=== PATIENT | male | born 1955 | race Caucasian/White ===

== ENCOUNTER 2021-12-26 12:16 | Inpatient (IN) | payer OTHER, SELFPAY ==
[~2021-12-26] VITALS: Ht 175.3 cm; Wt 84.8 kg
[2021-12-26 12:25] VITALS: BP 147/64
--- NOTE | 2021-12-26 12:33 | NUR ---
66 Y/O MALE BIBA FROM [facility] C/O ABD PAIN X2 DAYS. PER EMS EPIGASTRIC PAIN 9/10 SHARP PAIN, NON RADIATING. MEDHX: AFIB, DM, ANEMIC, HTN, COLOSTOMY, NEPHROSTOMY TUBE, HERNIA NKA
--- NOTE | 2021-12-26 12:44 | NUR ---
DR GROSS AT BEDSIDE EXAMINING PT
[2021-12-26] MEDS ORDERED: NACL 0.9% 500 ML IV ONE (12:50)
[2021-12-26] MEDS ORDERED: MORPHINE SULFATE 2 MG/ML SYR IVP ONE ×2 (12:50→13:50)
[2021-12-26] MEDS ORDERED: ONDANSETRON 4 MG/2 ML VIAL IVP ONE (12:50)
--- NOTE | 2021-12-26 12:59 | NUR ---
PT TAKEN TO CT SCAN VIA LIZZETH
[2021-12-26 13:47] LABS: BASOPHILS # (AUTO) 0.2 K/uL (0.00-0.22); BASOPHILS % (AUTO) 2.5 % (0.0-2.0); EOSINOPHILS # (AUTO) 0.1 K/uL (0-0.4); EOSINOPHILS % (AUTO) 0.6 % (0.0-4.0); HEMATOCRIT 35.7 % (36-52); HEMOGLOBIN 11.6 g/dL (12.0-18.0); LYMPHOCYTES # (AUTO) 1.6 K/uL (2.0-11.5); MEAN CORPUSCULAR HEMOGLOBIN 30 pg (27-31); MEAN CORPUSCULAR HGB CONC 32 g/dL (33-37); MEAN CORPUSCULAR VOLUME 93.9 fL (80-94); MONOCYTES # (AUTO) 0.6 K/uL (0.8-1.0); MONOCYTES % (AUTO) 7.1 % (1.7-9.3); NEUTROPHILS # (AUTO) 6.2 K/uL (1.8-7.7); NEUTROPHILS % (AUTO) 71.8 % (42.2-75.2); PLATELET COUNT (AUTO) 228 K/uL (140-450); RED CELL DISTRIBUTION WIDTH 19.9 % (11.6-13.7); WHITE BLOOD COUNT (AUTO) 8.7 K/uL (4.8-10.8)
[2021-12-26] MEDS ORDERED: LORazepam 2 MG/ML VIAL IVP ONE (13:50)
[2021-12-26] MEDS ORDERED: ONDANSETRON 4 MG/2 ML VIAL ONE (14:03)
[2021-12-26 14:19] LABS: ALBUMIN 1.9 g/dL (3.4-5.0); ANION GAP 11.6 (8-16); CARBON DIOXIDE 25.1 mmol/L (21-32); CREATININE 1.1 mg/dL (0.6-1.3); POTASSIUM 3.7 mmol/L (3.5-5.1); TOTAL BILIRUBIN 1.5 mg/dL (0.0-1.0)
--- NOTE | 2021-12-26 14:30 | NUR ---
Patient appears to be resting comfortably in bed. Vital Signs within normal limits. Respirations even and unlabored.
[2021-12-26 15:06] LABS: PROTHROMBIN TIME 10.1 secs (10.8-13.4)
[2021-12-26 15:48] LABS: BILIRUBIN,URINE NEGATIVE (NEGATIVE); BLOOD, URINE 3+ (NEGATIVE); COLOR,URINE YELLOW (YELLOW); LEUKOCYTE ESTERASE ,URINE 1+ (NEGATIVE); NITRITE, URINE NEGATIVE (NEGATIVE); PH,URINE 5.5 (5.0-9.0); UGLUCOSE NEGATIVE (NEGATIVE)
[2021-12-26] MEDS ORDERED: TUBE5SOL28 ID (16:02)
[2021-12-26] MEDS ORDERED: SLIDE SUBQ (16:02)
[2021-12-26] MEDS ORDERED: TAMS0.4C96 PO (16:02)
[2021-12-26] MEDS ORDERED: FERR325E14 PO (16:02)
[2021-12-26] MEDS ORDERED: POTA8TAB19 PO (16:02)
[2021-12-26] MEDS ORDERED: QUET25TA PO (16:02)
[2021-12-26] MEDS ORDERED: ACET-2619 PO (16:02)
[2021-12-26] MEDS ORDERED: METO50TE2 PO (16:02)
[2021-12-26] MEDS ORDERED: CLON0.5T PO (16:02)
[2021-12-26] MEDS ORDERED: FURO-570 PO (16:02)
[2021-12-26 16:05] LABS: APPEARANCE,URINE HAZY (CLEAR)
[2021-12-26 16:33] LABS: RBC,URINE 20-50 /HPF (0-5); YEAST,URINE Many /HPF (None Seen)
--- NOTE | 2021-12-26 16:58 | NUR ---
Patient on room air, resting comfortably in bed. Vital Signs within normal limits. Respirations even and unlabored. Chest rise is symmetrical. Will continue to monitor.
--- NOTE | 2021-12-26 19:15 | NUR ---
Pt report given to KAMILA HDZ. Transfer of care at this time.
--- NOTE | 2021-12-26 19:47 | NUR ---
PER BROTHER, HAS KIDNEY STONES
--- NOTE | 2021-12-26 19:51 | NUR ---
report given to Ervin HDZ from tele unit.
--- NOTE | 2021-12-26 20:35 | NUR ---
PT ARRIVED ON UNIT - GENERALIZED WEAKNESS. BILAT. LOWER EXT. EDEMA - PITTING 1-2+. LEG PLACED ON PILLOW SO HEELS FLOAT. NO SKIN BREAKS. VITILIGO SPOTS OVER BODY. DIAPERS SHOWED MULTIPLE VOIDS AND BM (SMALL). INCONT. CARE PROVIDED. PT IS TOTAL CARE. PT BARELY ABLE TO SPEAK.
[2021-12-26] MEDS: MORPHINE SULFATE 2 MG/ML SYR IVP PRN (22:57)
[2021-12-27] MEDS ORDERED: clonazePAM 0.5 MG TAB PO SCH (01:15)
[2021-12-27] MEDS ORDERED: POTASSIUM CHLORIDE 10 MEQ TABER PO PRN (01:15)
[2021-12-27] MEDS ORDERED: DEXTROSE 50% 50 ML SYR IVP PRN (01:15)
[2021-12-27] MEDS ORDERED: ONDANSETRON 4 MG/2 ML VIAL IM/IVP PRN (01:20)
[2021-12-27] MEDS: NACL 0.9% 1,000 ML IV SCH ×2 (01:20→17:31)
[2021-12-27] MEDS ORDERED: ZOLPIDEM 5 MG TAB PO PRN (01:20)
[2021-12-27] MEDS ORDERED: FLUCONAZOLE 200 MG/NS PREMIX 100 ML IV SCH (01:20)
[2021-12-27] MEDS ORDERED: DOCUSATE SODIUM 100 MG GELCAP PO PRN (01:20)
--- NOTE | 2021-12-27 01:39 | NUR ---
PT YELLING SPORADIC BUT DENIES PAIN. PT MEDICATED EARLIER W MORPHINE 2MG - PT REFUSES ANY MORE MEDICATION. PT DENIES KNOWING WHY HE IS YELLING. HEART RATE 130-140. DR. MCCORMICK iMESSAGED FOR FURTHER DIRECTION.
[2021-12-27 02:18] LABS: BASOPHILS # (AUTO) 0.1 K/uL (0.00-0.22); BASOPHILS % (AUTO) 0.6 % (0.0-2.0); EOSINOPHILS % (AUTO) 0.2 % (0.0-4.0); HEMATOCRIT 34.9 % (36-52); HEMOGLOBIN 11.1 g/dL (12.0-18.0); LYMPHOCYTES # (AUTO) 2.2 K/uL (2.0-11.5); LYMPHOCYTES % (AUTO) 25.2 % (20.5-51.1); MEAN CORPUSCULAR HEMOGLOBIN 30 pg (27-31); MEAN CORPUSCULAR HGB CONC 32 g/dL (33-37); MEAN CORPUSCULAR VOLUME 94.4 fL (80-94); MONOCYTES # (AUTO) 0.6 K/uL (0.8-1.0); MONOCYTES % (AUTO) 7.1 % (1.7-9.3); NEUTROPHILS % (AUTO) 66.9 % (42.2-75.2); PLATELET COUNT (AUTO) 227 K/uL (140-450); RED CELL DISTRIBUTION WIDTH 19.6 % (11.6-13.7); WHITE BLOOD COUNT (AUTO) 8.9 K/uL (4.8-10.8)
[2021-12-27 02:31] LABS: ANION GAP 12.4 (8-16); CARBON DIOXIDE 25.6 mmol/L (21-32); CREATININE 1.1 mg/dL (0.6-1.3)
--- NOTE | 2021-12-27 02:31 | NUR ---
iMESSAGE SENT TO DR ALONZO. AWAITING RESPONSE.
[2021-12-27 02:37] LABS: PROTHROMBIN TIME 10.4 secs (10.8-13.4)
[2021-12-27] MEDS ORDERED: cefTRIAXone 1,000 MG VIAL ONE (02:41)
[2021-12-27] MEDS: LORazepam 2 MG/ML VIAL IM/IVP PRN ×4 (02:46→21:07)
[2021-12-27] MEDS: FLUCONAZOLE 200 MG/NS PREMIX 100 ML IV SCH (02:46)
[2021-12-27 02:57] LABS: CHOL/HDL RATIO 4.1 (1-4.5); THYROID STIMULATING HORMONE 7.61 uIU/mL (0.34-3.74)
--- NOTE | 2021-12-27 02:58 | NUR ---
PT GIVEN ATIVAN SUCCESSFULLY. PT REFUSING ABXs, REFUSING INCONTINENCE CARE. WILL RE-APPROACH WHEN ATIVAN PEAKS.
--- NOTE | 2021-12-27 05:23 | NUR ---
SPOKE W PT'S BROTHER ISABEL ON PHONE. ISABEL ASKED THAT RECORDS FROM [facility] BE SENT TO THIS FACILITY TO BETTER CLARIFY PT'S CONDITION. WILL ENDORSE TO DAY SHIFT RN AND ASK IF MD WOULD CONSIDER REQUESTING [facility] [place].
--- NOTE | 2021-12-27 06:49 | NUR ---
PT MUCH CALMER AT THIS MOMENT. NEPHROSTOMY BAG WITH 150 ML OF LUIS DANIEL LIQUID (CLEAR). COLOSTOMY BAG W BROWN-LUIS DANIEL COLORED LIQUID STOOL (100ML). PT GIVEN SKIN CARE TO HIS BACK. PT GOWN AND CHUX ALSO REPLACED (URINE AND ONE SMALL STOOL). PT VERBALIZED FEELING "GOOD". PT CONCERNED ABOUT A EBT CARD. WILL ENDORSE TO DAY SHIFT RN. PT ALSO IS NOW AGREEABLE TO BEGINNING HIS ABX TX (STARTING NOW).
[2021-12-27] MEDS: BLOOD GLUCOSE MONITORING 1 DEV DEV FS SCH ×4 (07:30→21:08)
[2021-12-27 08:00] VITALS: BP 119/88
--- NOTE | 2021-12-27 08:00 | NUR ---
RECEIVED REPORT FROM PROBATE JUDGE NURSE, WILBUR, FOR CONTINUITY OF CARE. REPORTED PT IS NONCOMPLIANT AND REFUSING CARE. UPON VISUAL ASSESSMENT, PT IS ASLEEP IN BED WITH NO ACUTE S/S OF DISTRESS, PT ON TELE MONITOR. ALL SAFETY MEASURES IN PLACE, CALL LIGHT WITHIN REACH. WILL CONTINUE TO MONITOR.
[2021-12-27] MEDS: METOPROLOL SUCCINATE 50 MG TABER PO SCH (09:05)
[2021-12-27] MEDS: FERROUS SULFATE 325 MG TABEC PO SCH (09:05)
[2021-12-27] MEDS: FUROSEMIDE 40 MG TAB PO SCH (09:06)
[2021-12-27] MEDS: QUEtiapine FUMARATE 25 MG TAB PO SCH ×2 (09:06→21:06)
[2021-12-27] MEDS: TAMSULOSIN 0.4 MG CAP PO SCH (09:06)
[2021-12-27] MEDS: MORPHINE SULFATE 4 MG/ML SYR IVP PRN ×2 (09:07→18:39)
[2021-12-27 12:00] VITALS: BP 96/60
[2021-12-27 16:00] VITALS: BP 115/74
--- NOTE | 2021-12-27 17:06 | NUR ---
PATIENT HAS BEEN SCREENED AND CATEGORIZED MODERATE NUTRITION RISK. PATIENT WILL BE SEEN WITHIN 3-[address] OF [address]MISSION. [address]
--- NOTE | 2021-12-27 19:01 | NUR ---
PT HAS BEEN REMAINED STABLE THROUGHOUT THE SHIFT, WILL BE ENDORSED TO SURGICAL PRODUCT SALES CONSULTANT NURSE
[2021-12-27 20:00] VITALS: BP 115/35
[2021-12-28] VITALS: BP 112/64
[2021-12-28] MEDS: FLUCONAZOLE 200 MG/NS PREMIX 100 ML IV SCH (01:01)
[2021-12-28] MEDS: LORazepam 2 MG/ML VIAL IM/IVP PRN ×3 (01:30→23:26)
[2021-12-28] MEDS: MORPHINE SULFATE 4 MG/ML SYR IVP PRN (02:27)
[2021-12-28 04:00] VITALS: BP 115/74
[2021-12-28 06:01] LABS: BASOPHILS # (AUTO) 0.1 K/uL (0.00-0.22); EOSINOPHILS % (AUTO) 0.5 % (0.0-4.0); HEMATOCRIT 34.1 % (36-52); LYMPHOCYTES # (AUTO) 1.3 K/uL (2.0-11.5); LYMPHOCYTES % (AUTO) 22.3 % (20.5-51.1); MEAN CORPUSCULAR HEMOGLOBIN 30 pg (27-31); MEAN CORPUSCULAR HGB CONC 32 g/dL (33-37); MONOCYTES # (AUTO) 0.5 K/uL (0.8-1.0); MONOCYTES % (AUTO) 9.6 % (1.7-9.3); NEUTROPHILS # (AUTO) 3.8 K/uL (1.8-7.7); NEUTROPHILS % (AUTO) 66.6 % (42.2-75.2); PLATELET COUNT (AUTO) 201 K/uL (140-450); RED BLOOD CELL COUNT(AUTO) 3.63 MIL/uL (4.20-6.10); RED CELL DISTRIBUTION WIDTH 19.7 % (11.6-13.7); WHITE BLOOD COUNT (AUTO) 5.7 K/uL (4.8-10.8)
[2021-12-28] MEDS: BLOOD GLUCOSE MONITORING 1 DEV DEV FS SCH ×4 (06:13→21:08)
[2021-12-28 06:25] LABS: ANION GAP 13.5 (8-16); CARBON DIOXIDE 22.4 mmol/L (21-32); POTASSIUM 3.9 mmol/L (3.5-5.1)
[2021-12-28 06:29] LABS: MAGNESIUM 1.6 mg/dL (1.8-2.4); PHOSPHORUS 3.7 mg/dL (2.5-4.9)
--- NOTE | 2021-12-28 07:26 | NUR ---
REPORT RECEIVED FROM ANDREINA ADAIR FOR CONTINUITY OF CARE. PT. SLEEPING IN THE BED COMFORTABLY WITH NO S/S OF DISTRESS NOTED. ALL SAFETY MEASURES IN PLACE. WILL CONTINUE TO MONITOR THE PT.
[2021-12-28 08:00] VITALS: BP 127/98
[2021-12-28 09:07] LABS: T4 (THYROXINE) 6.4 ug/dL (4.5-12.0)
[2021-12-28] MEDS: FUROSEMIDE 40 MG TAB PO SCH (09:26)
[2021-12-28] MEDS: QUEtiapine FUMARATE 25 MG TAB PO SCH ×2 (09:27→20:57)
[2021-12-28] MEDS: FERROUS SULFATE 325 MG TABEC PO SCH (09:27)
[2021-12-28] MEDS: TAMSULOSIN 0.4 MG CAP PO SCH (09:27)
[2021-12-28] MEDS: METOPROLOL SUCCINATE 50 MG TABER PO SCH (09:33)
[2021-12-28] MEDS: NACL 0.9% 1,000 ML IV SCH (10:40)
[2021-12-28] MEDS: MAG SULF 2000 MG/WATER PREMIX 50 ML IV PRN (10:40)
[2021-12-28 12:00] VITALS: BP 113/87
--- NOTE | 2021-12-28 14:19 | NUR ---
PT. VERY AGITATED AND ANXIOUS. ADMINISTERED ATIVAN IVP MED PRN ORDER. WILL CONTINUE TO MONITOR THE PT.
--- NOTE | 2021-12-28 14:20 | NUR ---
1030. PT. LYING IN THE BED. STABLE. NO DISTRESS OBSERVED.ADMINISTERED DUE MEDICATIONS . PT. ALFREDO. WELL SAFETY MEASURES IN PLACE. WILL CONTINUE TO MONITOR THE PT.
--- NOTE | 2021-12-28 15:00 | NUR ---
PT. CALM AND COMFORTABLY SLEEPING AT THIS TIME. NO S/S OF ANXIETY NOTED. STABLE ON ROOM AIR. SAFETY MEASURES IN PLACE. WILL CONTINUE TO MONITOR THE PT.
[2021-12-28 16:00] VITALS: BP 133/74
--- NOTE | 2021-12-28 17:30 | NUR ---
PT. ALERT, AWAKE. STABLE ON ROOM AIR. WITH NO ACUTE DISTRESS NOTED. SAFETY MEASURES IN PLACE. WILL CONTINUE TO MONITOR THE PT.
--- NOTE | 2021-12-28 19:30 | NUR ---
ENDORSED REPORT TO PM SHIFT ANDREINA QUINTANA FOR CONTINUITY OF CARE. PT. STABLE.
[2021-12-28] MEDS: MORPHINE SULFATE 2 MG/ML SYR IVP PRN (19:48)
[2021-12-28 20:00] VITALS: BP 121/75
--- NOTE | 2021-12-28 23:24 | NUR ---
SHOUTING , TRY TO GET UP , C/O SLEEPLESSNESS , KEEPING TO REMOVE TELE MONITOR - SHOWING SIGNS OF AGITATION - WILL MEDICATE ORDERED . BP 121/78 , ID [id number] , O2 SAT 96 %, RR 20 . WILL CONT. TO MONITOR. CALL LIGHT WITHIN REACH .
[2021-12-29] VITALS: BP 118/75
[2021-12-29] MEDS: MORPHINE SULFATE 2 MG/ML SYR IVP PRN (01:48)
--- NOTE | 2021-12-29 02:00 | NUR ---
SLEEPING , CHEST RISE AND FALL EVENLY , CALL LIGHT WITHIN REACH .
[2021-12-29] MEDS: LORazepam 2 MG/ML VIAL IM/IVP PRN (03:57)
[2021-12-29 04:00] VITALS: BP 115/80
[2021-12-29] MEDS: FLUCONAZOLE 200 MG/NS PREMIX 100 ML IV SCH (04:08)
--- NOTE | 2021-12-29 04:10 | NUR ---
ROUNDS , NO S/SX OF ACUTE DISTRESS NOTED , WILL CONT. TO MONITOR .
--- NOTE | 2021-12-29 06:00 | NUR ---
AWAKE , O2 SAT WNL , BED ALARM ON , PULL OUT L IV SITE . WILL ENDORSE .
[2021-12-29 06:04] LABS: ANION GAP 14.1 (8-16); CARBON DIOXIDE 23.4 mmol/L (21-32); CREATININE 1.3 mg/dL (0.6-1.3); POTASSIUM 3.5 mmol/L (3.5-5.1)
[2021-12-29 06:11] LABS: BASOPHILS % (AUTO) 0.7 % (0.0-2.0); EOSINOPHILS % (AUTO) 0.5 % (0.0-4.0); HEMATOCRIT 33.4 % (36-52); HEMOGLOBIN 10.8 g/dL (12.0-18.0); LYMPHOCYTES # (AUTO) 1.9 K/uL (2.0-11.5); LYMPHOCYTES % (AUTO) 26.6 % (20.5-51.1); MEAN CORPUSCULAR HEMOGLOBIN 30 pg (27-31); MEAN CORPUSCULAR HGB CONC 32 g/dL (33-37); MEAN CORPUSCULAR VOLUME 93.7 fL (80-94); MONOCYTES # (AUTO) 0.6 K/uL (0.8-1.0); MONOCYTES % (AUTO) 8.6 % (1.7-9.3); NEUTROPHILS # (AUTO) 4.5 K/uL (1.8-7.7); NEUTROPHILS % (AUTO) 63.6 % (42.2-75.2); PLATELET COUNT (AUTO) 229 K/uL (140-450); RED BLOOD CELL COUNT(AUTO) 3.56 MIL/uL (4.20-6.10); RED CELL DISTRIBUTION WIDTH 19.3 % (11.6-13.7); WHITE BLOOD COUNT (AUTO) 7.1 K/uL (4.8-10.8)
[2021-12-29 06:12] LABS: MAGNESIUM 1.9 mg/dL (1.8-2.4); PHOSPHORUS 3.3 mg/dL (2.5-4.9)
--- NOTE | 2021-12-29 07:23 | NUR ---
HANDOFF REPORT RECEIVED FROM PM SHIFT ANDREINA QUINTANA FOR CONTINUITY OF CARE. PT. STABLE COMFORTABLY SLEEPING IN THE BED. BREATHINGS EVEN AND UNLABORED ON ROOM AIR. ALL SAFETY MEASURES IN PLACE. WILL CONTINUE TO MONITOR THE PT.
--- NOTE | 2021-12-29 07:23 | NUR ---
ENDORSED - PT - STABLE .
[2021-12-29] MEDS: BLOOD GLUCOSE MONITORING 1 DEV DEV FS SCH ×4 (07:49→21:00)
[2021-12-29 08:00] VITALS: BP 100/76
[2021-12-29] MEDS: TAMSULOSIN 0.4 MG CAP PO SCH (08:46)
[2021-12-29] MEDS: QUEtiapine FUMARATE 25 MG TAB PO SCH ×2 (08:46→21:00)
[2021-12-29] MEDS: FUROSEMIDE 40 MG TAB PO SCH (08:47)
[2021-12-29] MEDS: FERROUS SULFATE 325 MG TABEC PO SCH (08:56)
[2021-12-29] MEDS: METOPROLOL SUCCINATE 50 MG TABER PO SCH (08:57)
[2021-12-29] MEDS: NACL 0.9% 1,000 ML IV SCH (10:40)
--- NOTE | 2021-12-29 11:00 | NUR ---
OT. ALERT,AWAKE. STABLE ON ROOM AIR . NO DISTRESS NOTED. ALL SAFETY MEASURES IN PLACE. CALL LIGHT WITHIN REACH. WILL CONTINUE TO MONITOR THE PT.
[2021-12-29 12:00] VITALS: BP 121/85
--- NOTE | 2021-12-29 14:36 | NUR ---
PT. RESTING IN THE BED NO S/S OF DISTRESS NOTED. SAFETY MEASURES IN PLACE. WILL CONTINUE TO MONITOR THE PT.
--- NOTE | 2021-12-29 15:00 | NUR ---
NOTIFY MD DR. DOMINIQUE VIGIL . CRITICAL LAB URINE CULTURE POSITIVE FOR VRE. WILL FOLLOW UP WITH MD'S ORDER.
[2021-12-29] MEDS ORDERED: DILTIAZEM 25 MG/5 ML VIAL IVP PRN (15:25)
[2021-12-29] MEDS ORDERED: DIGOXIN 0.25 MG/ML AMP IV SCH (15:30)
[2021-12-29 16:00] VITALS: BP 134/75
--- NOTE | 2021-12-29 16:17 | NUR ---
DC PLANNING: DISCUSSED THE DC PLAN WITH DR FOX AWAITING FOR DR AYALA FOR IV ABX FOR VRE OF THE URINE. POSSIBLE DC FOR TOMORROW FAXED ALL PAPERWORK TO [facility] NOTIFIED COLTEN THE ADMIN. PLS CALL [facility] [phone] TO GET BED NUMBER. RECEIVED AUTH FOR TRANSPORT FROM [facility] # [id number] PLS CALL [facility] [phone] WHEN PT HAS DC ORDER. CM TO FOLLOW Addendum: 01/04/22 at 1651 by Juana Snell RN DC PLANNING: PER COLTEN AT [facility] NO BED AVAILABLE. WILL HAVE SOME ARRANGEMENTS TOMORROW CM TO FOLLOW Addendum: 01/05/22 at 1234 by Juana Snell RN DC PLANNING PATIENT IS GOING TO [facility] ROOM 5A # TO GIVE REPORT [phone] ARRANGED TRANSPORT WITH [facility] INSIGHT DIRECTOR TIME 1 PM NOTIFIED MARINA HDZ.
--- NOTE | 2021-12-29 19:45 | NUR ---
ENDORSED REPORT TO PM SHIFT RN FOR CONTINUITY OF CARE. PT. STABLE.
[2021-12-29 20:00] VITALS: BP 126/70
[2021-12-29] MEDS: LINEZOLID 600MG PREMIX 300 ML IV SCH (21:00)
[2021-12-29] MEDS: DIGOXIN 0.25 MG/ML AMP IV SCH (23:14)
[2021-12-30] VITALS: BP 122/71
--- NOTE | 2021-12-30 00:47 | NUR ---
PATIENT ALERT NO C/O LUNGS DIMINISH ON MONITOR A-FIB RECEIVED DIGOXIN 0.25 MG IVP 2330. HAS LEFT SIDE NEPHROSTOMY DRAINING LUIS DANIEL COLOR DRAIN. HAS COLOSTOMY DRAINING GREEN LIG. STOOL. BLOOD SUGAR 2100 WAS 97 NO INSULIN GIVEN. PATIENT C/O OF LEFT SIDE DISCOMFORT MEDICATED WITH MORPHINE 4 MG IVP.AT 2200.
[2021-12-30] MEDS: FLUCONAZOLE 200 MG/NS PREMIX 100 ML IV SCH (02:30)
[2021-12-30 04:00] VITALS: BP 120/74
[2021-12-30] MEDS: INSULIN LISPRO SLIDING SCALE 100 UNITS/ML VIAL SUBQ PRN (06:40)
[2021-12-30] MEDS: BLOOD GLUCOSE MONITORING 1 DEV DEV FS SCH ×4 (06:50→21:40)
[2021-12-30] MEDS: DIGOXIN 0.25 MG/ML AMP IV SCH ×2 (07:30→08:58)
[2021-12-30 08:00] VITALS: BP 127/103
[2021-12-30] MEDS: LINEZOLID 600MG PREMIX 300 ML IV SCH ×2 (08:45→22:45)
[2021-12-30] MEDS: FERROUS SULFATE 325 MG TABEC PO SCH (08:46)
[2021-12-30] MEDS: METOPROLOL SUCCINATE 50 MG TABER PO SCH (08:46)
[2021-12-30] MEDS: FUROSEMIDE 40 MG TAB PO SCH (08:46)
[2021-12-30] MEDS: QUEtiapine FUMARATE 25 MG TAB PO SCH ×2 (08:46→21:28)
[2021-12-30] MEDS: TAMSULOSIN 0.4 MG CAP PO SCH (08:46)
--- NOTE | 2021-12-30 08:59 | NUR ---
SCHEDULED MEDICATIONS DUE GIVEN. WILL CONTINUE TO MONITOR.
--- NOTE | 2021-12-30 10:10 | NUR ---
(12/30/21) RD INITIAL ASSESSMENT COMPLETED PLEASE REFER TO NUTRITION ASSESSMENT UNDER CARE ACTIVITY FOR ESTIMATED NUTRITIONAL NEEDS. RD RECOMMENDATIONS: 1. CONTINUE CCHO 60 GM DIET TOLERATED 2. CONSULT RDN PRN. 3. RD WILL F/U 3-5 DAYS; MODERATE RISK. GUDELIA LIU, MS, RDN
[2021-12-30] MEDS: MORPHINE SULFATE 4 MG/ML SYR IVP PRN ×2 (11:07→17:28)
--- NOTE | 2021-12-30 11:08 | NUR ---
PATIENT COMPLAINS OF SEVERE PAIN ON LEFT ARM. IV SITE CHANGED PREVIOUS INFILTRATED. MORPHINE GIVEN AT THIS TIME. WILL CONTINUE TO MONITOR.
[2021-12-30] MEDS: NACL 0.9% 1,000 ML IV SCH (11:14)
[2021-12-30 12:00] VITALS: BP 117/96
[2021-12-30 16:00] VITALS: BP 113/72
--- NOTE | 2021-12-30 17:04 | NUR ---
ASSISTED ELECTROSTATIC POWDER COATING TECHNICIAN IN CLEANING AND REPOSITIONING PATIENT.
--- NOTE | 2021-12-30 19:36 | NUR ---
GAVE REPORT TO AUDIO VISUAL PROJECT MANAGER NURSE FOR CONTINUITY OF CARE. PATIENT IN STABLE CONDITION.
--- NOTE | 2021-12-30 19:37 | NUR ---
RECD. RESTING IN BED, AWAKE, A/OX2. RESPIRATION EVEN AND UNLABORED. IV OF NS INFUSING AT 20 ML/HR, RIGHT FOREARM G22. WITH LEFT NEPHROSTOMY TUBE DRAINING CLEAR YELLOW URINE. COLOSTOMY BAG AT THE LEFT SIDE OF ABDOMEN DRAINING MODERATE AMOUNT OF LIQUID STOOLS GREENISH IN COLOR. ABLE TO VERBALIZED NEEDS. INCONTINENT. DENIES PAIN 0/10.
[2021-12-30 20:00] VITALS: BP 113/72
--- NOTE | 2021-12-30 20:00 | NUR ---
POC DISCUSSED AND REVIEWED WITH RENEA KWAN.
--- NOTE | 2021-12-30 23:30 | NUR ---
STILL AWAKE, SAYING IN A LOUD VOICE IF THERE ARE CIGARETTES. REORIENTED TO HOSPITAL SETTING.
[2021-12-31] VITALS: BP 135/74
--- NOTE | 2021-12-31 00:42 | NUR ---
UNABLE TO SLEEP, MEDICATED WITH AMBIEN PER MD ORDER.
[2021-12-31] MEDS: clonazePAM 0.5 MG TAB PO PRN (00:53)
--- NOTE | 2021-12-31 00:53 | NUR ---
WITH ANXIETY, MEDICATED WITH KLONOPIN PER MD ORDER.
--- NOTE | 2021-12-31 01:53 | NUR ---
STILL AWAKE, TALKING NON-SENSE. NO SO NOTED.
--- NOTE | 2021-12-31 03:00 | NUR ---
SLEEPING COMFORTABLY IN BED, RESPIRATION EVEN AND UNLABORED.
[2021-12-31 04:00] VITALS: BP 115/82
--- NOTE | 2021-12-31 05:00 | NUR ---
STILL SLEEPING IN BED, NO APPEARANCE OF DISCOMFORT OR DISTRESS NOTED. ABLE TO EMPTY 80 ML OF URINE IN THE NEPHROSTOMY TUBE BAG.
[2021-12-31 06:52] LABS: BASOPHILS # (AUTO) 0.1 K/uL (0.00-0.22); EOSINOPHILS % (AUTO) 0.5 % (0.0-4.0); MEAN CORPUSCULAR HEMOGLOBIN 30 pg (27-31)
--- NOTE | 2021-12-31 07:00 | NUR ---
CONDITION REMAIN STABLE. ALL NEEDS ATTENDED. WILL ENDORSE TO AM SHIFT NURSE FOR CONTINUITY OF CARE.
[2021-12-31 07:29] LABS: ANION GAP 10.2 (8-16); CARBON DIOXIDE 22.8 mmol/L (21-32)
[2021-12-31] MEDS: BLOOD GLUCOSE MONITORING 1 DEV DEV FS SCH ×4 (07:59→21:23)
[2021-12-31 08:00] VITALS: BP 117/78
[2021-12-31 08:00] LABS: MAGNESIUM 1.7 mg/dL (1.8-2.4); PHOSPHORUS 3.1 mg/dL (2.5-4.9)
[2021-12-31] MEDS: FUROSEMIDE 40 MG TAB PO SCH ×2 (09:00→09:54)
[2021-12-31] MEDS: QUEtiapine FUMARATE 25 MG TAB PO SCH ×3 (09:00→21:17)
[2021-12-31] MEDS: METOPROLOL SUCCINATE 50 MG TABER PO SCH (09:00)
[2021-12-31] MEDS: TAMSULOSIN 0.4 MG CAP PO SCH ×2 (09:00→09:54)
[2021-12-31] MEDS: FERROUS SULFATE 325 MG TABEC PO SCH ×2 (09:00→09:55)
[2021-12-31] MEDS: LINEZOLID 600MG PREMIX 300 ML IV SCH ×2 (09:55→22:08)
[2021-12-31] MEDS: DIGOXIN 0.25 MG/ML AMP IV SCH (09:59)
--- NOTE | 2021-12-31 10:13 | NUR ---
SCHEDULED IV MEDICATIONS DUE GIVEN. ORAL MEDICATION NOT GIVEN PATIENT REFUSED. WILL CONTINUE TO MONITOR.
[2021-12-31] MEDS: NACL 0.9% 1,000 ML IV SCH (10:40)
[2021-12-31 11:22] LABS: BASOPHILS % (AUTO) 0.8 % (0.0-2.0); LYMPHOCYTES # (AUTO) 1.6 K/uL (2.0-11.5); LYMPHOCYTES % (AUTO) 25.4 % (20.5-51.1); MONOCYTES # (AUTO) 0.7 K/uL (0.8-1.0); MONOCYTES % (AUTO) 11.4 % (1.7-9.3); NEUTROPHILS # (AUTO) 3.9 K/uL (1.8-7.7); NEUTROPHILS % (AUTO) 61.9 % (42.2-75.2)
[2021-12-31 11:26] LABS: WHITE BLOOD COUNT (AUTO) 6.3 K/uL (4.8-10.8)
[2021-12-31 11:27] LABS: HEMATOCRIT 36.8 % (36-52); HEMOGLOBIN 11.5 g/dL (12.0-18.0); MEAN CORPUSCULAR HGB CONC 31 g/dL (33-37); MEAN CORPUSCULAR VOLUME 95.7 fL (80-94); RED BLOOD CELL COUNT(AUTO) 3.85 MIL/uL (4.20-6.10); RED CELL DISTRIBUTION WIDTH 19.9 % (11.6-13.7)
[2021-12-31 11:28] LABS: PLATELET COUNT (AUTO) 209 K/uL (140-450)
[2021-12-31 12:00] VITALS: BP 139/79
--- NOTE | 2021-12-31 12:36 | NUR ---
SCHEDULED MEDICATIONS DUE GIVEN. WILL CONTINUE TO MONITOR.
[2021-12-31] MEDS ORDERED: MAGNESIUM OXIDE 400 MG TAB PO SCH (14:26)
[2021-12-31] MEDS: MAG SULF 2000 MG/WATER PREMIX 50 ML IV PRN (14:29)
[2021-12-31] MEDS: MORPHINE SULFATE 4 MG/ML SYR IVP PRN (15:47)
--- NOTE | 2021-12-31 15:48 | NUR ---
COMPLAINS OF PAIN. MORPHINE GIVEN AT THIS TIME. WILL CONTINUE TO MONITOR.
[2021-12-31 16:00] VITALS: BP 142/73
--- NOTE | 2021-12-31 19:18 | NUR ---
GAVE REPORT TO BOAT REPAIRER NURSE. PATIENT IN STABLE CONDITION.
--- NOTE | 2021-12-31 19:19 | NUR ---
RECD. RESTING IN BED, SLEEPING, GOT UPSET WHEN WAKEN UP. RESPIRATION EVEN AND UNLABORED. IV OF NS INFUSING AT 20 ML/HR, RIGHT FOREARM G22. BILATERAL LOWER EXTREMITIES WITH PITTING EDEMA 2+, ELEVATED ON PILLOWS. WITH LEFT NEPHROSTOMY TUBE DRAINING SMALL AMOUNT OF CLEAR YELLOW URINE. COLOSTOMY BAG WITH SMALL AMOUNT OF PASTY GREENISH BLACK STOOLS. NO APPEARANCE OF PAIN OR DISCOMFORT NOTED, 0/10.
[2021-12-31 20:00] VITALS: BP 125/73
--- NOTE | 2021-12-31 20:00 | NUR ---
Patient's Plan of Care was discussed and reviewed with RENEA: DEE
[2021-12-31] MEDS: DIGOXIN 0.125 MG TAB PO SCH (21:17)
--- NOTE | 2021-12-31 21:17 | NUR ---
SCHEDULED MEDICATIONS ADMINISTERED WITH APPLE SAUCE, TOLERATED WELL.
--- NOTE | 2021-12-31 23:00 | NUR ---
AWAKE IN BED. CLEANSED AND DIAPER CHANGED. MADE COMFORTABLE IN BED WITH PILLOWS.
[2022-01-01] VITALS: BP 132/89
--- NOTE | 2022-01-01 01:00 | NUR ---
REQUESTED FOR SNACK GIVEN. ATE 100%.
--- NOTE | 2022-01-01 03:00 | NUR ---
SLEEPING COMFORTABLY IN BED, RESPIRATION EVEN AND UNLABORED.
[2022-01-01 04:00] VITALS: BP 137/85
[2022-01-01] MEDS: BLOOD GLUCOSE MONITORING 1 DEV DEV FS SCH ×4 (06:50→20:15)
[2022-01-01 07:14] LABS: PHOSPHORUS 2.9 mg/dL (2.5-4.9)
[2022-01-01 07:19] LABS: ANION GAP 10.1 (8-16); CARBON DIOXIDE 24.5 mmol/L (21-32); POTASSIUM 3.6 mmol/L (3.5-5.1)
[2022-01-01 07:21] LABS: BASOPHILS % (AUTO) 0.7 % (0.0-2.0); EOSINOPHILS # (AUTO) 0.1 K/uL (0-0.4); EOSINOPHILS % (AUTO) 0.9 % (0.0-4.0); HEMATOCRIT 35.7 % (36-52); HEMOGLOBIN 11.6 g/dL (12.0-18.0); LYMPHOCYTES # (AUTO) 1.5 K/uL (2.0-11.5); LYMPHOCYTES % (AUTO) 26.3 % (20.5-51.1); MEAN CORPUSCULAR HEMOGLOBIN 31 pg (27-31); MEAN CORPUSCULAR HGB CONC 33 g/dL (33-37); MEAN CORPUSCULAR VOLUME 94.1 fL (80-94); MONOCYTES # (AUTO) 0.6 K/uL (0.8-1.0); MONOCYTES % (AUTO) 10.2 % (1.7-9.3); NEUTROPHILS # (AUTO) 3.6 K/uL (1.8-7.7); NEUTROPHILS % (AUTO) 61.9 % (42.2-75.2); PLATELET COUNT (AUTO) 218 K/uL (140-450); RED BLOOD CELL COUNT(AUTO) 3.79 MIL/uL (4.20-6.10); RED CELL DISTRIBUTION WIDTH 19.1 % (11.6-13.7); WHITE BLOOD COUNT (AUTO) 5.9 K/uL (4.8-10.8)
--- NOTE | 2022-01-01 07:30 | NUR ---
REPORT RECEIVED FROM CENTERLESS GRINDER SET UP OPERATOR RN, PT AOX2, CONFUSED, YELLING FOR FOOD, VSS, SAFETY MEASURES MAINTAINED, CALL LIGHT WITHIN REACH, WILL CONTINUE TO MONITOR
[2022-01-01 08:00] VITALS: BP 159/88
[2022-01-01] MEDS: FUROSEMIDE 40 MG TAB PO SCH (09:12)
[2022-01-01] MEDS: FERROUS SULFATE 325 MG TABEC PO SCH (09:12)
[2022-01-01] MEDS: METOPROLOL SUCCINATE 50 MG TABER PO SCH (09:12)
[2022-01-01] MEDS: QUEtiapine FUMARATE 25 MG TAB PO SCH ×2 (09:12→20:08)
[2022-01-01] MEDS: LINEZOLID 600MG PREMIX 300 ML IV SCH ×2 (09:12→20:07)
[2022-01-01] MEDS: TAMSULOSIN 0.4 MG CAP PO SCH (09:13)
[2022-01-01] MEDS: NACL 0.9% 1,000 ML IV SCH (10:05)
[2022-01-01 12:00] VITALS: BP 132/84
--- NOTE | 2022-01-01 13:44 | NUR ---
BED BATH COMPLETE, REPOSITIONED, VSS, EATING LUNCH, NO ACUTE DISTRESS, WILL CONTINUE TO MONITOR
[2022-01-01] MEDS: MORPHINE SULFATE 2 MG/ML SYR IVP PRN (15:21)
[2022-01-01 16:00] VITALS: BP 139/78
[2022-01-01] MEDS ORDERED: NICOTINE TRANSD SYS 14 MG/24 HR PATCH TD SCH (16:00)
--- NOTE | 2022-01-01 16:38 | NUR ---
COLOSTOMY BAG CHANGED, AREA CLEANED, PT GIVEN ANOTHER BED BATH, REPOSITIONED, NO ACUTE DISTRESS, PENDING LABS PRIOR TO PROCEDURE, WILL CONTINUE TO MONITOR
[2022-01-01 20:00] VITALS: BP 139/102
--- NOTE | 2022-01-01 20:00 | NUR ---
RECEIVED PT FROM DAY NURSE FOR CONTINUITY OF CARE.PT IS RESTING IN BED, AWAKE, A/OX2. RESPIRATION EVEN AND UNLABORED. IV OF NS INFUSING AT 10 ML/HR, RIGHT FOREARM G241. WITH LEFT NEPHROSTOMY TUBE DRAINING CLEAR YELLOW URINE. COLOSTOMY BAG AT THE LEFT SIDE OF ABDOMEN DRAINING MODERATE AMOUNT OF LIQUID STOOLS GREENISH IN COLOR. ABLE TO VERBALIZED NEEDS. INCONTINENT. DENIES PAIN 0/10.
[2022-01-01] MEDS: DIGOXIN 0.125 MG TAB PO SCH (20:08)
[2022-01-01] MEDS: LORazepam 2 MG/ML VIAL IM/IVP PRN (20:08)
--- NOTE | 2022-01-01 21:00 | NUR ---
SCHEDULED MEDICATIONS ADMINISTERED.TOLERATED WELL.WILL CONTINUE TO MONITOR.
[2022-01-01 22:30] LABS: PROTHROMBIN TIME 10.6 secs (10.8-13.4)
[2022-01-02] VITALS: BP 111/59
--- NOTE | 2022-01-02 | NUR ---
PT SLEEPING COMFORTABLY IN BED, RESPIRATION EVEN AND UNLABORED.NO S/SX OF DISTRESS NOTED. WILL CONTINUE TO MONITOR.
--- NOTE | 2022-01-02 01:55 | NUR ---
PT AWAKE, RESTING IN BED. NO S/SX OF DISTRESS NOTED. WILL CONTINUE TO MONITOR.
--- NOTE | 2022-01-02 03:30 | NUR ---
PT ASLEEP. BREATHING EQUAL AND UNLABORED. NO S/SX OF DISTRESS. WILL CONTINUE TO MONITOR.
[2022-01-02 04:00] VITALS: BP 112/58
[2022-01-02] MEDS: BLOOD GLUCOSE MONITORING 1 DEV DEV FS SCH ×4 (06:59→21:03)
--- NOTE | 2022-01-02 07:09 | NUR ---
PT IS STABLE. NO ACUTE EVENTS THROUGHOUT THE NIGHT.NO S/SX OF DISTRESS OF THIS MOMENT.ALL NEEDS ATTENDED. ALL PRECAUTIONS IN PLACE. WILL ENDORSE TO AM SHIFT NURSE.
--- NOTE | 2022-01-02 07:30 | NUR ---
RECEIVED BEDSIDE REPORT FROM ANTISUBMARINE WEAPONS OFFICER NURSE FOR CONTINUITY OF CARE. PT IS AWAKE. ON RA WITH BREATHING UNLABORED. AFIB ON TELE MONITOR. COLOSTOMY BAG IN PLACE AND NEPHROSTOMY TUBE IN PLACE. SACRAL WOUND WITH DRY DRESSING. IV IS IN THE RIGHT FA 24 GAUGE SALINE LOCKED. PT IS STABLE. PLAN OF CARE DISCUSSED.
[2022-01-02 08:00] VITALS: BP 138/91
[2022-01-02] MEDS: LINEZOLID 600MG PREMIX 300 ML IV SCH ×2 (09:00→21:09)
[2022-01-02] MEDS: FUROSEMIDE 40 MG TAB PO SCH (09:01)
[2022-01-02] MEDS: METOPROLOL SUCCINATE 50 MG TABER PO SCH (09:01)
[2022-01-02] MEDS: QUEtiapine FUMARATE 25 MG TAB PO SCH ×2 (09:01→21:10)
[2022-01-02] MEDS: FERROUS SULFATE 325 MG TABEC PO SCH (09:01)
[2022-01-02] MEDS: NICOTINE TRANSD SYS 14 MG/24 HR PATCH TD SCH (09:02)
[2022-01-02] MEDS: NACL 0.9% 1,000 ML IV SCH (09:02)
[2022-01-02] MEDS: TAMSULOSIN 0.4 MG CAP PO SCH (09:02)
[2022-01-02] MEDS: MORPHINE SULFATE 2 MG/ML SYR IVP PRN (09:06)
--- NOTE | 2022-01-02 09:15 | NUR ---
PT WAS CHANGED AND REPOSITIONED. BED BATH GIVEN. NO DISTRESS NOTED AT THIS TIME. DENIES PAIN. WILL CONTINUE TO MONITOR.
[2022-01-02] MEDS ORDERED: MIDAZOLAM 2 MG/2 ML VIAL ONE (11:19)
[2022-01-02] MEDS ORDERED: fentaNYL citrate 0.05 MG/ML VIAL ONE (11:20)
--- NOTE | 2022-01-02 11:25 | NUR ---
PT WAS TAKEN TO THE PROCEDURE FOR US GUIDED DRAINAGE OF THE HEMATOMA PERINEAL REGION. WILL WAIT FOR PT TO ARRIVE BACK TO UNIT.
[2022-01-02] MEDS ORDERED: LIDOCAINE 1% 500 MG/50 ML VIAL ONE (11:27)
[2022-01-02 12:00] VITALS: BP 120/82
--- NOTE | 2022-01-02 12:20 | NUR ---
PT IS BACK FROM PROCEDURE. VS ARE STABLE. BREATHING IS UNLABORED ON 2L O2 NC. O2 SAT IS 99%. PT IS DROWSY. NO DISTRESS NOTED.
--- NOTE | 2022-01-02 14:30 | NUR ---
PT WAS CHANGED AND REPOSITIONED. PT VOIDED IN DIAPER. NO DISTRESS AT THIS TIME. STATES HE IS HAVING PAIN IN HIS KNEE BUT IT IS TOLERABLE. WILL CONTINUE TO MONITOR PAIN.
[2022-01-02 16:00] VITALS: BP 122/85
--- NOTE | 2022-01-02 17:00 | NUR ---
ROUNDED ON PT. HE STATED HE WAS OKAY AT THIS TIME. NO DISTRESS NOTED. DIAPER IS DRY AND INTACT. DENIES PAIN. WILL MONITOR.
--- NOTE | 2022-01-02 19:10 | NUR ---
ENDORSED PT TO BLOOD SPLATTER ANALYST NURSE FOR CONTINUITY OF CARE. PT IS STABLE. PLAN OF CARE DISCUSSED.
--- NOTE | 2022-01-02 19:20 | NUR ---
RECEIVED PT FROM DAY NURSE FOR CONTINUITY OF CARE.PT IS RESTING IN BED, AWAKE, A/OX2. RESPIRATION EVEN AND UNLABORED. NS INFUSING AT 10 ML/HR, RIGHT FOREARM G24. WITH LEFT NEPHROSTOMY TUBE DRAINING CLEAR YELLOW URINE. COLOSTOMY BAG AT THE LEFT SIDE OF ABDOMEN DRAINING MODERATE AMOUNT OF LIQUID STOOLS GREENISH IN COLOR. CALL LIGHT WITHIN REACH. SAFETY PRECAUTIONS IN PLACE. WILL CONTINUE TO MONITOR.
[2022-01-02 20:00] VITALS: BP 137/87
[2022-01-02] MEDS: DIGOXIN 0.125 MG TAB PO SCH (21:09)
--- NOTE | 2022-01-02 21:30 | NUR ---
SCHEDULED MEDICATIONS ADMINISTERED.TOLERATED WELL.WILL CONTINUE TO MONITOR.
[2022-01-02] MEDS: ACETAMINOPHEN 325 MG TAB PO PRN (23:45)
[2022-01-03] VITALS: BP 126/77
[2022-01-03] MEDS: LORazepam 2 MG/ML VIAL IM/IVP PRN (00:15)
[2022-01-03] MEDS: MORPHINE SULFATE 4 MG/ML SYR IVP PRN (00:42)
--- NOTE | 2022-01-03 00:45 | NUR ---
PT COMPLAINED OF LEG AND BACK PAIN. PRN PAIN MEDICATION GIVEN. NO DISTRESS NOTED. WILL CONTINUE TO MONITOR.
--- NOTE | 2022-01-03 03:20 | NUR ---
PT ASLEEP. BREATHING EQUAL AND UNLABORED. NO S/SX OF DISTRESS. WILL CONTINUE TO MONITOR.
[2022-01-03 04:00] VITALS: BP 131/74
[2022-01-03] MEDS: BLOOD GLUCOSE MONITORING 1 DEV DEV FS SCH ×4 (06:27→20:53)
--- NOTE | 2022-01-03 06:39 | NUR ---
PT IS STABLE. NO ACUTE EVENTS THROUGHOUT THE NIGHT. NO S/SX OF DISTRESS. ALL NEEDS MET. ALL SAFETY PRECAUTIONS IN PLACE. WILL ENDORSE TO AM SHIFT NURSE.
--- NOTE | 2022-01-03 06:40 | NUR ---
BLOOD SUGAR WAS 118. NO INSULIN COVERAGE NEEDED.
--- NOTE | 2022-01-03 07:25 | NUR ---
RECEIVED BEDSIDE REPORT FROM SYSTEM ADMINISTRATION ADVISOR NURSE FOR CONTINUITY OF CARE. PT IS AWAKE, A&OX2. ON RA WITH BREATHING UNLABORED. AFIB ON THE TELE MONITOR. COLOSTOMY BAG IN PLACE. NEPHROSTOMY TUBE IN PLACE ON THE LEFT SIDE. S/P LEFT PERIRENAL DRAINAGE OF THE HEMATOMA. IV IS IN THE RIGHT FA 22 GAUGE SALINE LOCKED. PT IS STABLE. PLAN OF CARE DISCUSSED.
[2022-01-03 08:00] VITALS: BP 142/78
--- NOTE | 2022-01-03 08:05 | NUR ---
MESSAGED DR. SHOEMAKER TO INFORM OF NO NEW LABS. HE GAVE VERBAL ORDER FOR CBC AND BMP LABS.
[2022-01-03] MEDS: QUEtiapine FUMARATE 25 MG TAB PO SCH ×3 (09:00→20:25)
[2022-01-03] MEDS: METOPROLOL SUCCINATE 50 MG TABER PO SCH ×2 (09:00→09:45)
[2022-01-03] MEDS: FERROUS SULFATE 325 MG TABEC PO SCH ×2 (09:00→09:45)
[2022-01-03] MEDS: FUROSEMIDE 40 MG TAB PO SCH ×2 (09:00→09:45)
[2022-01-03] MEDS: TAMSULOSIN 0.4 MG CAP PO SCH ×2 (09:00→09:45)
[2022-01-03 09:02] LABS: BASOPHILS % (AUTO) 0.3 % (0.0-2.0); EOSINOPHILS % (AUTO) 0.4 % (0.0-4.0); HEMOGLOBIN 11.7 g/dL (12.0-18.0); LYMPHOCYTES # (AUTO) 2.5 K/uL (2.0-11.5); MEAN CORPUSCULAR HEMOGLOBIN 30 pg (27-31); MEAN CORPUSCULAR HGB CONC 32 g/dL (33-37); MEAN CORPUSCULAR VOLUME 92.6 fL (80-94); MONOCYTES # (AUTO) 0.8 K/uL (0.8-1.0); MONOCYTES % (AUTO) 9.3 % (1.7-9.3); NEUTROPHILS # (AUTO) 5.2 K/uL (1.8-7.7); PLATELET COUNT (AUTO) 223 K/uL (140-450); RED BLOOD CELL COUNT(AUTO) 3.88 MIL/uL (4.20-6.10); WHITE BLOOD COUNT (AUTO) 8.6 K/uL (4.8-10.8)
[2022-01-03 09:26] LABS: ANION GAP 12.3 (8-16); CARBON DIOXIDE 24.3 mmol/L (21-32); CREATININE 0.9 mg/dL (0.6-1.3); POTASSIUM 3.6 mmol/L (3.5-5.1)
[2022-01-03] MEDS: NICOTINE TRANSD SYS 14 MG/24 HR PATCH TD SCH (09:45)
--- NOTE | 2022-01-03 09:59 | NUR ---
PT REFUSED MORNING MEDS. WILL INFORM DR. SHOEMAKER.
[2022-01-03] MEDS: NACL 0.9% 1,000 ML IV SCH (10:59)
--- NOTE | 2022-01-03 11:28 | NUR ---
PT CHANGED AND REPOSITIONED. PT STILL ATTEMPTING TO REFUSE CHANGES AND BED BATH. ROD AND TUBE STRAIGHTENER ABLE TO PROVIDE BED BATH ANYWAY. PT UNCOOPERATIVE WITH STAFF.
--- NOTE | 2022-01-03 11:32 | NUR ---
MESSAGED DR. AYALA TO ASK IF HE WOULD LIKE TO RENEW LINEZOLID ABX. WILL WAIT FOR RESPONSE.
[2022-01-03 12:00] VITALS: BP 144/90
--- NOTE | 2022-01-03 12:49 | NUR ---
RECEIVED MESSAGE BACK FROM DR. AYALA TO RENEW LINEZOLID ORDER.
[2022-01-03] MEDS: clonazePAM 0.5 MG TAB PO PRN (14:41)
--- NOTE | 2022-01-03 14:42 | NUR ---
WENT TO ADMINISTER MEDICATIONS TO PT HE WAS VERY AGITATED AND AGGRESSIVE TO STAFF. RADHA RN, VEDA HERNANDEZ, AND PRIMARY RN AT THE BEDSIDE. PT STOOD UP OUT OF BED WHILE BACK WAS TURNED AND FELL TO KNEES THEN CHEST TO THE FLOOR. PT WAS STILL AGGRESSIVE YELLED AT STAFF TO NOT TOUCH HIM. BLOOD NOTED ON THE LEFT EYEBROW WITH 0.5 INCH CUT. BLEEDING CONTROLLED. PT PICKED UP BY MULTIPLE STAFF MEMBERS AND PLACED IN BED. PT DENIES ANY PAIN. PT PULLED OFF IV LINE BUT IT IS STILL IN PLACE. WILL INFORM MD.
--- NOTE | 2022-01-03 14:42 | NUR ---
PT IS VERY AGITATED AND AGGRESSIVE WITH STAFF. PT STATES HE HAS ANXIETY AND IS FEELING NAUSEOUS. PT WAS GIVEN ZOFRAN FOR NAUSEA. KLONIPIN FOR ANXIETY. BP WAS STABLE PRIOR TO ADMINISTRATION OF MEDICATION.
--- NOTE | 2022-01-03 15:00 | NUR ---
NOTIFIED DR. SHOEMAKER OF FALL INCIDENT. WITNESSED BY STAFF. INFORMED HIM PT WAS AGGRESSIVE WITH STAFF, THREATENING PHYSICAL HARM. ALSO INFORMED HIM MINOR LACERATION ON LEFT EYEBROW WITH BLEEDING CONTROLLED. TOLD HIM HE STOOD UP, FELL TO KNEES, THEN TO CHEST. FOREHEAD HIT THE FLOOR WHERE THE EYEBROW LACERATION OCCURRED. DR. SHOEMAKER ORDERED STAT HEAD CT, BILAT KNEE XRAY, ATIVAN 1 MG Q6H PRN AGITATION. Addendum: 01/03/22 at 1602 by Rosie Baca RN DR. SHOEMAKER DOES NOT WANT RESTRAINTS RIGHT NOW SUGGESTED. WILL HOLD OFF RESTRAINTS.
--- NOTE | 2022-01-03 15:45 | NUR ---
PT JUST ARRIVED BACK FROM HEAD CT WITH JOSE J HERNANDEZ, AND PRIMARY RN. PT IS A&OX2, BASELINE. NO DISTRESS NOTED. PT DENIES PAIN. WILL CONTINUE TO MONITOR.
[2022-01-03 16:00] VITALS: BP 138/96
[2022-01-03] MEDS ORDERED: LORazepam 2 MG/ML VIAL IVP PRN (16:00)
--- NOTE | 2022-01-03 16:18 | NUR ---
PT. WITH LOW MANDEEP SCALE AT RISK, CONTINUE TO FOLLOW PRESSURE INJURY PREVENTION INTERVENTIONS. -TURN AND REPOSITION PATIENT Q 2H -INSPECT SKIN UNDER AND AROUND MEDICAL DEVICES. -ASSESS AND MONITOR SKIN CONDITION DURING POSITION CHANGE -OFFLOAD BILATERAL HEELS BY PLACING PILLOWS UNDER CALVES AT ALL TIMES, UNLESS OTHERWISE CONTRAINDICATED -APPLY HEEL PROTECTORS -PRESSURE REDISTRIBUTION SURFACE AND OFFLOADING SACRALCOCCYX -MANAGE FRICTION AND SHEAR BY USING LIFT SHEET TO REPOSITION PATIENT -HOB 30 DEGREE TOLERATE -PLEASE FOLLOW RD RECOMMENDATIONS PLEASE NOTIFIED WOUND CARE NURSE FOR ANY CHANGE OF SKIN CONDITION
--- NOTE | 2022-01-03 16:29 | NUR ---
PT WAS GIVEN ATIVAN ORDERED FOR AGITATION. PT IS THREATENING TO GET OUT OF BED AND PHYSICALLY HARM STAFF. BP IS STABLE PRIOR TO ADMINISTRATION OF MEDICATION. WILL CONTINUE TO MONITOR.
--- NOTE | 2022-01-03 18:03 | NUR ---
XRAYS OF BOTH KNEES COMPLETE. TECH JUST LEFT THE BEDSIDE. PT IS STABLE AT THIS TIME.
--- NOTE | 2022-01-03 18:15 | NUR ---
BROTHERISABEL AT BEDSIDE. PT APPEARS CALM. NO DISTRESS NOTED AT THIS TIME. ON RA WITH BREATHING UNLABORED. DENIES PAIN. WILL CONTINUE TO MONITOR.
--- NOTE | 2022-01-03 18:32 | NUR ---
RIR FOR FALL; [id number].
--- NOTE | 2022-01-03 19:16 | NUR ---
ENDORSED BEDSIDE REPORT FROM SUPERVISOR BRAIDING NURSE FOR CONTINUITY OF CARE. PT IS STABLE. PLAN OF CARE DISCUSSED.
--- NOTE | 2022-01-03 19:43 | NUR ---
RECEIVED BEDSIDE REPORT FROM AM NURSE. PATIENT IS RESTING IN BED. ON ROOM AIR. NO S/S OF ACUTE DISTRESS. SAFETY PRECAUTIONS IN PLACE. CALL LIGHT WITHIN REACH. NO COMPLAINTS OF PAIN. COLOSTOMY BAG INTACT ON THE LEFT ABDOMEN. LEFT NEPHROSTOMY. LEFT EYEBROW LACERATION S/P FALL. WILL CONTINUE TO MONITOR PT.
[2022-01-03 20:00] VITALS: BP 138/81
[2022-01-03] MEDS: LINEZOLID 600MG PREMIX 300 ML IV SCH (20:15)
--- NOTE | 2022-01-03 20:15 | NUR ---
SCHEDULED MEDICATIONS ADMINISTERED ORDERED.
[2022-01-03] MEDS: DIGOXIN 0.125 MG TAB PO SCH (20:25)
--- NOTE | 2022-01-03 22:10 | NUR ---
ASSISTED RETAIL MERCHANDISER IN CLEANING THE PATIENT.
[2022-01-04] VITALS: BP 104/67
[2022-01-04 04:00] VITALS: BP 131/85
[2022-01-04] MEDS: BLOOD GLUCOSE MONITORING 1 DEV DEV FS SCH ×4 (07:30→21:19)
--- NOTE | 2022-01-04 07:30 | NUR ---
ENDORSED PATIENT TO AM NURSE FOR CONTINUITY OF CARE. PT IS STABLE.
--- NOTE | 2022-01-04 07:32 | NUR ---
BLOOD SUGAR WAS 73, NO INSULIN COVERAGE NEEDED.
[2022-01-04 08:00] VITALS: BP 139/90
--- NOTE | 2022-01-04 08:00 | NUR ---
RECEIVED PT FROM [employer]. PT A/O X2. NO SOB OR RESPIRATORY DISTRESS. ON RA. COLOSTOMY ON L SIDE. NEPHROSTOMY ON L SIDE. SWELLING NOTED BILATERAL LOWER EXTREMITY AND UPPER EXTREMITIES. IV TO SL. PT REFUSED LABS. NEEDS ALL MET AT THIS TIME. SAFE PRECAUTIONS/CONTACT PRECAUTIONS IN PLACE. WILL MONITOR CLOSELY.
[2022-01-04] MEDS: FERROUS SULFATE 325 MG TABEC PO SCH (09:04)
[2022-01-04] MEDS: LINEZOLID 600MG PREMIX 300 ML IV SCH ×2 (09:04→23:14)
[2022-01-04] MEDS: TAMSULOSIN 0.4 MG CAP PO SCH (09:05)
[2022-01-04] MEDS: FUROSEMIDE 40 MG TAB PO SCH (09:05)
[2022-01-04] MEDS: QUEtiapine FUMARATE 25 MG TAB PO SCH ×2 (09:06→21:16)
[2022-01-04] MEDS: NICOTINE TRANSD SYS 14 MG/24 HR PATCH TD SCH (09:07)
[2022-01-04] MEDS: METOPROLOL SUCCINATE 50 MG TABER PO SCH (09:07)
[2022-01-04 09:40] LABS: BASOPHILS % (AUTO) 0.6 % (0.0-2.0); EOSINOPHILS % (AUTO) 0.4 % (0.0-4.0); HEMATOCRIT 33.9 % (36-52); HEMOGLOBIN 11.1 g/dL (12.0-18.0); LYMPHOCYTES # (AUTO) 2.1 K/uL (2.0-11.5); LYMPHOCYTES % (AUTO) 28.8 % (20.5-51.1); MEAN CORPUSCULAR HEMOGLOBIN 30 pg (27-31); MEAN CORPUSCULAR HGB CONC 33 g/dL (33-37); MONOCYTES # (AUTO) 0.6 K/uL (0.8-1.0); MONOCYTES % (AUTO) 8.4 % (1.7-9.3); NEUTROPHILS # (AUTO) 4.5 K/uL (1.8-7.7); NEUTROPHILS % (AUTO) 61.8 % (42.2-75.2); PLATELET COUNT (AUTO) 206 K/uL (140-450); RED BLOOD CELL COUNT(AUTO) 3.69 MIL/uL (4.20-6.10); RED CELL DISTRIBUTION WIDTH 18.8 % (11.6-13.7); WHITE BLOOD COUNT (AUTO) 7.2 K/uL (4.8-10.8)
[2022-01-04 09:49] LABS: ANION GAP 10.2 (8-16); CARBON DIOXIDE 25.6 mmol/L (21-32); CREATININE 0.8 mg/dL (0.6-1.3); POTASSIUM 3.8 mmol/L (3.5-5.1)
[2022-01-04] MEDS: NACL 0.9% 1,000 ML IV SCH (10:40)
--- NOTE | 2022-01-04 11:00 | NUR ---
PT STATES PAIN WITH ANTIBIOTICS INFUSING. FLUSHED WITH 5 ML NS. PT MOANS IN PAIN. EXPLAINED IV RESTART. PT REFUSED AND STATES, "NO!". ANTIBIOTICS STOPPED. WILL MONITOR CLOSELY.
--- NOTE | 2022-01-04 11:30 | NUR ---
PT REFUSED IV RESTART. EXPLAINED PURPOSE OF FLUIDS AND ANTIBIOTICS. PT STILL REFUSES AND STATES, "NO!" SAFE PRECAUTIONS IN PLACE. WILL MONITOR CLOSELY.
[2022-01-04 12:00] VITALS: BP 132/79
[2022-01-04] MEDS ORDERED: NICO14TD30 TD (12:10)
[2022-01-04] MEDS ORDERED: [UNRECOGNIZED DRUG - CODE] IV (12:10)
[2022-01-04] MEDS ORDERED: DIGO0.1211 PO (12:10)
[2022-01-04] MEDS ORDERED: DOCU-299 PO (12:10)
--- NOTE | 2022-01-04 15:00 | NUR ---
PT ALLOWED FOR DISCONTINUATION OF IV. IV DISCONTINUED. CATHETER INTACT. NO ACTIVE BLEEDING NOTED. PT ALLOWED FOR IV INSERTION. UNSUCCESSFUL ATTEMPT X2. PT REFUSES FURTHER IV INSERTION. SAFE PRECAUTIONS IN PLACE. WILL CONTINUE TO MONITOR CLOSELY.
--- NOTE | 2022-01-04 15:11 | NUR ---
01/04/22 RD FOLLOW UP COMPLETED PLEASE REFER TO NUTRITION ASSESSMENT UNDER CARE ACTIVITY FOR ESTIMATED NUTRITIONAL NEEDS. 1. CONTINUE CCHO 60 GM DIET TOLERATED -RECOMMEND GLUCERNA BID IF PO INTAKE CONTINUES TO BE < 50% 2. CONSULT RDN PRN 3. RD WILL F/U 7 DAYS; LOW RISK [address]
[2022-01-04 16:00] VITALS: BP 131/79
[2022-01-04] MEDS: ACETAMINOPHEN 325 MG TAB PO PRN ×2 (17:01→23:22)
--- NOTE | 2022-01-04 19:18 | NUR ---
CLOSING: PT RESTING IN BED. HOB ELEVATED. NO SOB OR RESPIRATORY DISTRESS. ON RA. REQUESTING MORE PAIN MED, HOWEVER, TYLENOL PRN WAS ALREADY GIVEN. EXPLAINED TO PT. NEEDS ALL MET AT THIS TIME. WILL ENDORSE CONTINUITY OF CARE TO NIGHTSHIFT.
--- NOTE | 2022-01-04 19:20 | NUR ---
RECEIVED PATIENT RESTING IN BED. NO IV LINE NOTED. NO ACUTE DISTRESS. ON ROOM AIR. ALL SAFETY MEASURES IN PLACE. CALL LIGHT ON EASY REACH. NO COMPLAINTS OF PAIN. BROTHER AT BEDSIDE. WILL CONTINUE TO MONITOR PT.
[2022-01-04 20:00] VITALS: BP 132/91
[2022-01-04] MEDS: DIGOXIN 0.125 MG TAB PO SCH (21:16)
--- NOTE | 2022-01-04 21:16 | NUR ---
ADMINISTERED SCHEDULED MEDICATIONS DUE.
--- NOTE | 2022-01-04 21:20 | NUR ---
BLOOD SUGAR WAS 98 NO INSULIN COVERAGE NEEDED.
[2022-01-04] MEDS ORDERED: HYDROcodone/APAP 5/325 MG 1 TAB TAB PO PRN (21:25)
--- NOTE | 2022-01-04 23:11 | NUR ---
INSERTED A NEW PERIPHERAL IV ON THE LEFT FOREARM WITH GOOD BACK FLOW OF BLOOD. TOLERATED WELL.
[2022-01-05] VITALS: BP 120/77
[2022-01-05 04:00] VITALS: BP 135/85
[2022-01-05] MEDS: BLOOD GLUCOSE MONITORING 1 DEV DEV FS SCH ×2 (06:37→11:43)
--- NOTE | 2022-01-05 07:42 | NUR ---
ENDORSED PATIENT TO AM NURSE FOR CONTINUITY OF CARE. PT IS STABLE. NO FEVER NO SOB.
--- NOTE | 2022-01-05 07:45 | NUR ---
RECEIVED PT FROM NIGHT RN, PT IS AWAKE NA LYING ON THE BED, CONFUSED, ON RA, SIDE RAILS ARE UP AND CALL LIGHT WITHIN REACH, IV LINE NOTED ON THE LFA G. 24 ON TKO, PT HAS A LEFT ANKLE SCAB THAT IS OPEN, BLE EDEMA NOTED,LEFT NEPHROSTOMY TUBE AND COLOSTOMY IN PLACE IN PLACE, NO SIGN OF DISTRESS NOTED AND WILL CONTINUE TO MONITOR PT.
[2022-01-05 08:00] VITALS: BP 138/85
[2022-01-05 08:26] LABS: BASOPHILS % (AUTO) 0.5 % (0.0-2.0); EOSINOPHILS % (AUTO) 0.5 % (0.0-4.0); HEMATOCRIT 39.9 % (36-52); LYMPHOCYTES # (AUTO) 2.2 K/uL (2.0-11.5); LYMPHOCYTES % (AUTO) 32.5 % (20.5-51.1); MEAN CORPUSCULAR HEMOGLOBIN 30 pg (27-31); MEAN CORPUSCULAR HGB CONC 30 g/dL (33-37); MONOCYTES # (AUTO) 0.5 K/uL (0.8-1.0); NEUTROPHILS % (AUTO) 58.5 % (42.2-75.2); PLATELET COUNT (AUTO) 96 K/uL (140-450); RED BLOOD CELL COUNT(AUTO) 4.03 MIL/uL (4.20-6.10); WHITE BLOOD COUNT (AUTO) 6.8 K/uL (4.8-10.8)
[2022-01-05 08:47] LABS: ANION GAP 12.5 (8-16); CARBON DIOXIDE 21.8 mmol/L (21-32); CREATININE 0.9 mg/dL (0.6-1.3); POTASSIUM 4.3 mmol/L (3.5-5.1)
[2022-01-05] MEDS: TAMSULOSIN 0.4 MG CAP PO SCH (10:05)
[2022-01-05] MEDS: QUEtiapine FUMARATE 25 MG TAB PO SCH (10:06)
[2022-01-05] MEDS: FUROSEMIDE 40 MG TAB PO SCH (10:06)
[2022-01-05] MEDS: FERROUS SULFATE 325 MG TABEC PO SCH (10:07)
--- NOTE | 2022-01-05 10:07 | NUR ---
PT WAS GIVEN THE SCHEDULED AM MEDICATIONS, TOLERATED AND WILL CONTINUE TO MONITOR PT.
[2022-01-05] MEDS: NICOTINE TRANSD SYS 14 MG/24 HR PATCH TD SCH (10:08)
[2022-01-05] MEDS: METOPROLOL SUCCINATE 50 MG TABER PO SCH (10:10)
[2022-01-05] MEDS: LINEZOLID 600MG PREMIX 300 ML IV SCH (10:11)
[2022-01-05] MEDS: NACL 0.9% 1,000 ML IV SCH (10:40)
[2022-01-05 12:00] VITALS: BP 123/98
--- NOTE | 2022-01-05 12:45 | NUR ---
WOUND ASSESSMENT AND DRESSING APPLICATION WAS DONE TO PT NOW, PICTURE WAS TAKEN AND ATTACHED TO CHART.
[2022-01-05] MEDS: INSULIN LISPRO SLIDING SCALE 100 UNITS/ML VIAL SUBQ PRN (13:09)
--- NOTE | 2022-01-05 13:09 | NUR ---
PT WAS GIVEN 4 UNITS INSULIN ON THE RIGHT DELTOID AREA FOR BLOOD GLUCOSE OF 215.
--- NOTE | 2022-01-05 13:22 | NUR ---
CALLED [facility] AT [phone] AND GAVE REPORT TO VIR[place] MEIER REGARDING CARE MANAGEMENT OF THE PT, PT IS GOING TO 5A AND WILL BE REMELTER BY [facility] AT 1300H.
--- NOTE | 2022-01-05 13:46 | NUR ---
DISCHARGED PT ACCOMPANIED BY [facility] PERSONNEL, IV LINE IN PLACE FOR IV ANTIBIOTIC CONTINUATION, ARM BAND REMOVED AND PT IS STABLE AT THIS TIME.
== END 2022-01-05 13:52 | DRG 698 ==
LOC: MED 12:16 → MTU 15:51
PROC: 0T913ZX Drainage of Left Kidney, Percutaneous Approach, Diagnostic (ICD-10-PCS; principal; 2022-01-02)
DX: S37.012A Minor contusion of left kidney, initial encounter (principal); G93.41 Metabolic encephalopathy; K63.1 Perforation of intestine (nontraumatic); N39.0 Urinary tract infection, site not specified; Z16.21 Resistance to vancomycin; N17.9 Acute kidney failure, unspecified; I13.0 Hypertensive heart and chronic kidney disease with heart failure and stage 1 through stage 4 chronic kidney disease, or unspecified chronic kidney disease; I50.22 Chronic systolic (congestive) heart failure; I42.9 Cardiomyopathy, unspecified; I47.2 Ventricular tachycardia; E87.1 Hypo-osmolality and hyponatremia; B95.2 Enterococcus as the cause of diseases classified elsewhere; E11.22 Type 2 diabetes mellitus with diabetic chronic kidney disease; K57.30 Diverticulosis of large intestine without perforation or abscess without bleeding; N20.0 Calculus of kidney; I45.10 Unspecified right bundle-branch block; X58.XXXA Exposure to other specified factors, initial encounter; F41.9 Anxiety disorder, unspecified; E83.42 Hypomagnesemia; I08.1 Rheumatic disorders of both mitral and tricuspid valves; Z20.822 Contact with and (suspected) exposure to COVID-19; I48.91 Unspecified atrial fibrillation; N40.0 Benign prostatic hyperplasia without lower urinary tract symptoms; N18.2 Chronic kidney disease, stage 2 (mild); K80.20 Calculus of gallbladder without cholecystitis without obstruction; Z87.442 Personal history of urinary calculi; Z79.4 Long term (current) use of insulin; Z79.899 Other long term (current) drug therapy; Y93.89 Activity, other specified; Y92.89 Other specified places as the place of occurrence of the external cause; Y99.8 Other external cause status
CPT/HCPCS: 36415; 70450; 71045; 73562; 77012; 80048; 80053; 80162; 81001; 82140; 82150; 82948; 83036; 83605; 83690; 83735; 83880; 84100; 84134; 84436; 84443; 84484; 85025; 85610; 85730; 86886; 86900; 86901; 87040; 87070; 87075; 87081; 87086; 87186; 87205; 93005; 96361; 96374; 96375; 96376; 99285; J0696; J1160; J1450; J1644; J2001; J2020; J2060; J2250; J2270; J2405; J3010; J3475; J7030; J7060; Q0092

== ENCOUNTER 2022-01-07 14:29 | Emergency (ER) | payer OTHER ==
[~2022-01-07] VITALS: Ht 175.3 cm; Wt 79.4 kg
[~2022-01-07 14:29] MED LIST: ACET-2619 PO; CLON0.5T PO; DIGO0.1211 PO; DOCU-299 PO; FERR325E14 PO; FURO-570 PO; METO50TE2 PO; NICO14TD30 TD; POTA8TAB19 PO; QUET25TA PO; SLIDE SUBQ; TAMS0.4C96 PO; TUBE5SOL28 ID; [UNRECOGNIZED DRUG - CODE] IV
[2022-01-07 14:42] VITALS: BP 150/88
--- NOTE | 2022-01-07 14:47 | NUR ---
BIBA TO BED 11.
--- NOTE | 2022-01-07 15:20 | NUR ---
66 Y/O MALE BIBA FROM [facility] C/O PRESSUSRELIKE 6 CP X2 HOURS. DENIES N/V/D AT THIS TIME. PT NOTED AFIB ON THE MONITOR. COLOSTOMY NOTED AT THIS TIME. F/C ALSO PATENT AND INTACT WITH CLEAR YELLOW URINE NOTED. BUE/BLE SWELLING + 3 NOTED. WEAK PEDAL PULSES BILAT. WOUND NOTED ON LEFT LOWER LEG, PT STATES FROM A PREVIOUS ABRASION. PMHX: DM, HTN, COLOSTOMY, CHRONIC YOUNG FOR RETENTION ALLERGIES: DENIES HOME MEDS: SEE LIST IN CHART
--- NOTE | 2022-01-07 15:25 | NUR ---
DR. LAND AT BEDSIDE WITH THE PATIENT
--- NOTE | 2022-01-07 15:26 | NUR ---
IV ESTABLISHED AND BLOOD COLLECTED
--- NOTE | 2022-01-07 15:27 | NUR ---
SPOKE TO DAUGHTER SAMMI
--- NOTE | 2022-01-07 15:34 | NUR ---
RADIOLOGY AT BEDSIDE
--- NOTE | 2022-01-07 16:00 | NUR ---
PT IS REFUSING CARE AT THIS TIME, EDUCATED PT ON ALL RISKS AND BENEFITS AND [place] HAS CONSULTED WITH HIM WELL. PT IS UNABLE TO WALK AT THIS TIME AND TELE PSYCH ARRANGE TO DETERMINE ABILITY TO MAKE OWN DECISIONS AT THIS TIME
--- NOTE | 2022-01-07 16:20 | NUR ---
SPOKE TO JADE FROM [facility] AND THEY ARE ABLE AND WILLING TO ACCEPT PT BACK AT THIS TIME.
--- NOTE | 2022-01-07 16:40 | NUR ---
SPOKE TO DAUGHTER SAMMI AND UPDATED HER. PATIENT WILL BE GOING BACK TO [facility]
--- NOTE | 2022-01-07 17:00 | NUR ---
PT REQUESTED A MEAL AND SOMETHING TO DRINK AT THIS TIME. PT GIVEN A SANDWHICH REQUESTED. PT PROCEEDED TO THROW SANDWHICH AT STAFF AND DRINK ONTO FLOOR. PT STATES HE DOES NOT WANT ANYTHING ELSE TO EAT OR DRINK OFFERED AT THIS TIME.
--- NOTE | 2022-01-07 17:20 | NUR ---
DR SLAUGHTER ON TELE PSYCH AT THIS TIME. PT HAS CAPACITY TO AMA AT THIS TIME.
--- NOTE | 2022-01-07 18:10 | NUR ---
PT REQUESTED TO SPEAK WITH FAMILY, PHONE HANDED TO PT AFTER DIALING NUMBER PER REQUESTED
[2022-01-07] MEDS: LORazepam 2 MG/ML VIAL IVP ONE (18:33)
--- NOTE | 2022-01-07 19:21 | NUR ---
Pt report given to Artur HDZ. Transfer of care at this time.
--- NOTE | 2022-01-07 19:29 | NUR ---
haven Garcia, family member to give update on pt status and plan for d/c back to facility.
--- NOTE | 2022-01-07 19:50 | NUR ---
emptied pt colostomy and nephrostomy bag.
--- NOTE | 2022-01-07 20:06 | NUR ---
attempted to ambulate pt with walker with no success. pt too frail at this time d/t admin of ativan.
--- NOTE | 2022-01-07 21:54 | NUR ---
provided pt with water per request.
--- NOTE | 2022-01-08 00:09 | NUR ---
pt reports 7/10 b/l leg pain. dr. Pedro made aware. Verbal order of norco 5 PO once
[2022-01-08] MEDS: HYDROcodone/APAP 5/325 MG 1 TAB TAB PO STA (00:15)
--- NOTE | 2022-01-08 03:40 | NUR ---
provided pt with food per request.
[2022-01-08] MEDS ORDERED: LORazepam 2 MG/ML VIAL ONE (04:48)
[2022-01-08] MEDS: LORazepam 2 MG/ML VIAL IVP ONE (04:50)
[2022-01-08] MEDS: diphenhydrAMINE 50 MG/ML VIAL IVP ONE (05:46)
--- NOTE | 2022-01-08 08:14 | NUR ---
BREAKFAST TRAY PROVIDED TO PT AND REPOSITIONED FOR COMFORT PER REQUEST.
[2022-01-08 11:22] VITALS: BP 122/68
--- NOTE | 2022-01-08 11:28 | NUR ---
Patient discharged with v/s stable. Written and verbal after care instructions ABOUT HEART FAILURE given and explained. Patient verbalized understanding. Ambulance Transport with to assisted. All questions addressed prior to discharge. Advised to follow up with PMD.
== END 2022-01-08 11:28 | disposition short-term general hospital (02) ==
LOC: MED 14:29
DX: J90 Pleural effusion, not elsewhere classified (principal); I11.9 Hypertensive heart disease without heart failure; E11.9 Type 2 diabetes mellitus without complications
CPT/HCPCS: 71045; 93005; 96374; 96375; 96376; 99285; J1200; J2060

== ENCOUNTER 2022-05-24 14:47 | Emergency (ER) | payer OTHER ==
[~2022-05-24] VITALS: Ht 170.2 cm; Wt 59.0 kg
[2022-05-24 15:30] VITALS: BP 100/59
--- NOTE | 2022-05-24 16:30 | NUR ---
PT W/C ASSISTED TO ER BED 2
--- NOTE | 2022-05-24 17:00 | NUR ---
ASSUMED CARE OF A 66/M FROM [facility]. PT WAS SENT VIA EMS FROM NURSING FACILITY FOR A LEAKING L NEHPROSOTOMY TUBE. ATTEMPTED TO ASSESS TUBE, PT DECLINED. INFORMED PT NEED FOR ASSESSMENT BUT PT STILL DECLINED. PT IS ALSO REQUESTING FOR COLOSTOMY TO BE REVERSED. EDUCATED PATIENT ON COLOSTOMY TUBE INDICATIONS. PT VERBALZIED UNDERSTANDING. PENDING MSE.
--- NOTE | 2022-05-24 18:27 | NUR ---
PT IS PENDING DISCHARGE. ADVISED OF PLAN TO RETURN TO [facility]. PT IS AGREEABLE.
--- NOTE | 2022-05-24 19:20 | NUR ---
REPORT TO ANDREINA VALLEJO. ALL CARE TRASNFERRED.
--- NOTE | 2022-05-25 07:27 | NUR ---
RECEIVED REPORT FROM GENEVIEVE. ASSUMED CARE AT THIS TIME. PT AWAITING TRANSPORT AT THIS TIME. PT PROVIDED WITH ANOTHER BLANKET. ALL NEEDS MET AT THIS TIME.
--- NOTE | 2022-05-25 08:06 | NUR ---
PT MOVED TO BED IN CHAIR D. BREAKFAST ORDERED.
[2022-05-25 08:45] VITALS: BP 103/61
--- NOTE | 2022-05-25 08:51 | NUR ---
PT PROVIDED WITH BREAKFAST, ALL NEEDS MET AT THIS TIME.
--- NOTE | 2022-05-25 09:17 | NUR ---
Patient discharged with v/s stable. Written and verbal after care instructions ABOUT COLOSTOMY HOME GUIDE given and explained. Patient verbalized understanding. Ambulance Transport with to skilled nursing. All questions addressed prior to discharge. Advised to follow up with PMD.
--- NOTE | 2022-05-25 09:25 | NUR ---
REPORT CALLED TO [facility] SPOKE WITH YASMINE.
== END 2022-05-25 09:17 | disposition home or self-care (01) ==
LOC: MED 14:47
DX: T83.032A Leakage of nephrostomy catheter, initial encounter (principal); K94.00 Colostomy complication, unspecified; E11.9 Type 2 diabetes mellitus without complications; I10 Essential (primary) hypertension; Z79.899 Other long term (current) drug therapy; Z90.49 Acquired absence of other specified parts of digestive tract; Y84.8 Other medical procedures as the cause of abnormal reaction of the patient, or of later complication, without mention of misadventure at the time of the procedure; Y92.89 Other specified places as the place of occurrence of the external cause
CPT/HCPCS: 99285

== ENCOUNTER 2024-01-02 15:42 | Emergency (ER) | payer OTHER ==
[~2024-01-02] VITALS: Ht 172.7 cm; Wt 81.6 kg
[~2024-01-02 15:42] MED LIST changes: +LINE600I8 IV; -[UNRECOGNIZED DRUG - CODE] IV
[2024-01-02 15:59] VITALS: BP 112/70; PULSE 94; RESP 16; TEMP 98.5; O2SAT 96
[2024-01-02 17:17] LABS: BASOPHILS # (AUTO) 0.1 K/uL (0.00-0.22); BASOPHILS % (AUTO) 0.9 % (0.0-2.0); EOSINOPHILS # (AUTO) 0.2 K/uL (0-0.4); HEMATOCRIT 30.2 % (36-52); HEMOGLOBIN 10.5 g/dL (12.0-18.0); LYMPHOCYTES # (AUTO) 2.5 K/uL (2.0-11.5); MEAN CORPUSCULAR HEMOGLOBIN 32 pg (27-31); MEAN CORPUSCULAR HGB CONC 35 g/dL (33-37); MEAN CORPUSCULAR VOLUME 93.3 fL (80-94); MONOCYTES # (AUTO) 1.2 K/uL (0.8-1.0); MONOCYTES % (AUTO) 10.1 % (1.7-9.3); NEUTROPHILS # (AUTO) 7.8 K/uL (1.8-7.7); PLATELET COUNT (AUTO) 305 K/uL (140-450); RED BLOOD CELL COUNT(AUTO) 3.24 MIL/uL (4.20-6.10); RED CELL DISTRIBUTION WIDTH 13.1 % (11.6-13.7); WHITE BLOOD COUNT (AUTO) 11.8 K/uL (4.8-10.8)
[2024-01-02 17:31] LABS: ANION GAP 13.6 (8-16); CALCIUM 8.3 mg/dL (8.5-10.1); CARBON DIOXIDE 25.6 mmol/L (21-32); CREATININE 1.5 mg/dL (0.6-1.3); POTASSIUM 5.2 mmol/L (3.5-5.1)
[2024-01-02 17:34] LABS: FLU A ANTIGEN negative (NEGATIVE); FLU B ANTIGEN NEGATIVE (NEGATIVE)
[2024-01-02] MEDS: ONDANSETRON 4 MG/2 ML VIAL IVP ONE (17:36)
[2024-01-02] MEDS: MORPHINE SULFATE 4 MG/ML SYR IVP ONE (17:37)
[2024-01-02 18:06] LABS: INR 0.91 (0.8-1.2); PARTIAL THROMBOPLASTIN TIME 27.1 secs (22-35.6); PROTHROMBIN TIME 9.6 secs (10.8-13.4)
[2024-01-02 18:33] VITALS: O2SAT 96
== END 2024-01-02 19:20 | disposition left against medical advice (07) ==
LOC: MED 15:42
DX: R10.9 Unspecified abdominal pain (principal); Z20.822 Contact with and (suspected) exposure to COVID-19; N50.811 Right testicular pain; Z79.899 Other long term (current) drug therapy
CPT/HCPCS: 36415; 71045; 76870; 80048; 83605; 83880; 84484; 85025; 85610; 85730; 87040; 87426; 87804; 93005; 96374; 96375; 99285; J2270; J2405; Q0092

== ENCOUNTER 2024-01-03 04:10 | Emergency (ER) | payer OTHER ==
[~2024-01-03] VITALS: Ht 165.1 cm; Wt 72.6 kg
[2024-01-03 04:16] VITALS: BP 138/100; PULSE 80; RESP 18; TEMP 97.2; O2SAT 100
[2024-01-03 05:37] LABS: BASOPHILS # (AUTO) 0.1 K/uL (0.00-0.22); BASOPHILS % (AUTO) 1.2 % (0.0-2.0); EOSINOPHILS # (AUTO) 0.2 K/uL (0-0.4); EOSINOPHILS % (AUTO) 1.9 % (0.0-4.0); HEMATOCRIT 29.7 % (36-52); HEMOGLOBIN 10.4 g/dL (12.0-18.0); LYMPHOCYTES % (AUTO) 20.6 % (20.5-51.1); MEAN CORPUSCULAR HEMOGLOBIN 33 pg (27-31); MEAN CORPUSCULAR HGB CONC 35 g/dL (33-37); MEAN CORPUSCULAR VOLUME 93.5 fL (80-94); MONOCYTES % (AUTO) 10.2 % (1.7-9.3); NEUTROPHILS # (AUTO) 6.4 K/uL (1.8-7.7); NEUTROPHILS % (AUTO) 66.1 % (42.2-75.2); PLATELET COUNT (AUTO) 297 K/uL (140-450); RED BLOOD CELL COUNT(AUTO) 3.18 MIL/uL (4.20-6.10); RED CELL DISTRIBUTION WIDTH 13.2 % (11.6-13.7); WHITE BLOOD COUNT (AUTO) 9.7 K/uL (4.8-10.8)
[2024-01-03] MEDS: ONDANSETRON 4 MG/2 ML VIAL IVP ONE (05:44)
[2024-01-03] MEDS: MORPHINE SULFATE 4 MG/ML SYR IVP ONE (05:45)
[2024-01-03] MEDS: NACL 0.9% 1,000 ML IV ONE (05:45)
[2024-01-03 05:58] LABS: ALBUMIN 2.6 g/dL (3.4-5.0); BILIRUBIN,DIRECT 0.1 mg/dL (0.0-0.3); TOTAL BILIRUBIN 0.4 mg/dL (0.0-1.0); TOTAL PROTEIN, SERUM 7.4 g/dL (6.4-8.2)
[2024-01-03 06:07] LABS: ANION GAP 15.6 (8-16); CALCIUM 8.2 mg/dL (8.5-10.1); CARBON DIOXIDE 24.2 mmol/L (21-32); CREATININE 1.5 mg/dL (0.6-1.3); POTASSIUM 4.8 mmol/L (3.5-5.1)
[2024-01-03 06:24] VITALS: BP 127/84; PULSE 104; RESP 18; TEMP 97.2; O2SAT 100
[2024-01-03] MEDS ORDERED: CEFEPIME 1,000 MG VIAL ONE (07:35)
[2024-01-03 07:40] LABS: APPEARANCE,URINE CLEAR (CLEAR); BILIRUBIN,URINE NEGATIVE (NEGATIVE); BLOOD, URINE 2+ (NEGATIVE); COLOR,URINE YELLOW (YELLOW); LEUKOCYTE ESTERASE ,URINE NEGATIVE (NEGATIVE); NITRITE, URINE NEGATIVE (NEGATIVE); PROTEIN,URINE TRACE (NEGATIVE); UGLUCOSE NEGATIVE (NEGATIVE); UROBILINOGEN,URINE 0.2 EU/dL (0.2 - 1)
[2024-01-03] MEDS: CEFEPIME 1,000 MG in DEXTROSE 5% 50 ML IV ONE (07:45)
[2024-01-03 07:51] LABS: WBC,URINE 0-5 /HPF (0-5)
[2024-01-03 07:52] LABS: BACTERIA,URINE FEW /HPF (None Seen); SQUAMOUS EPITHELIAL CELL,UR 0-3 (FEW) /LPF (0-3 (FEW))
[2024-01-03 08:13] LABS: LACTIC ACID 1.2 mmol/L (0.4-2.0)
[2024-01-03] MEDS: metroNIDAZOLE 500 MG/NS PREMIX 100 ML IV ONE (08:40)
== END 2024-01-03 08:50 | disposition home or self-care (01) ==
LOC: MED 04:10 → MMU 08:07 → MED 08:07 → UNDOADMIN 08:07 → MED 08:50
DX: K40.30 Unilateral inguinal hernia, with obstruction, without gangrene, not specified as recurrent (principal); I48.91 Unspecified atrial fibrillation; E11.9 Type 2 diabetes mellitus without complications; I10 Essential (primary) hypertension; Z87.448 Personal history of other diseases of urinary system; Z98.890 Other specified postprocedural states; Z79.899 Other long term (current) drug therapy; Z79.4 Long term (current) use of insulin
CPT/HCPCS: 36415; 74176; 80048; 80076; 81001; 83605; 85025; 87040; 93005; 96361; 96365; 96375; 99285; J0692; J2270; J2405; J7030

== ENCOUNTER 2024-01-06 22:16 | Emergency (ER) | payer OTHER ==
[~2024-01-06] VITALS: Ht 165.1 cm; Wt 72.6 kg
[2024-01-06 22:20] VITALS: BP 148/90; PULSE 88; RESP 18; TEMP 98.1; O2SAT 98
[2024-01-06] MEDS: METOCLOPRAMIDE 10 MG TAB PO ONE (22:55)
[2024-01-06] MEDS: ONDANSETRON 4 MG ODT PO ONE (22:55)
[2024-01-06 23:40] VITALS: BP 127/71; PULSE 112; RESP 20; TEMP 98.1; O2SAT 98
== END 2024-01-06 23:40 | disposition left against medical advice (07) ==
LOC: MED 22:16
DX: R11.0 Nausea (principal); I48.91 Unspecified atrial fibrillation; E11.9 Type 2 diabetes mellitus without complications; I11.0 Hypertensive heart disease with heart failure; I50.9 Heart failure, unspecified; Z87.448 Personal history of other diseases of urinary system; Z79.899 Other long term (current) drug therapy; Z79.4 Long term (current) use of insulin
CPT/HCPCS: 99283; J8597; Q0162

== ENCOUNTER 2024-01-09 09:07 | Emergency (ER) | payer OTHER ==
[~2024-01-09] VITALS: Ht 172.7 cm; Wt 74.8 kg
[2024-01-09 09:12] VITALS: BP 124/72; PULSE 50; RESP 16; TEMP 98.2; O2SAT 99
[2024-01-09 09:46] LABS: HEMATOCRIT 33.5 % (36-52); HEMOGLOBIN 11.5 g/dL (12.0-18.0); MEAN CORPUSCULAR HEMOGLOBIN 32 pg (27-31); MEAN CORPUSCULAR HGB CONC 34 g/dL (33-37); PLATELET COUNT (AUTO) 412 K/uL (140-450); RED BLOOD CELL COUNT(AUTO) 3.64 MIL/uL (4.20-6.10); RED CELL DISTRIBUTION WIDTH 13.6 % (11.6-13.7); WHITE BLOOD COUNT (AUTO) 10.5 K/uL (4.8-10.8)
[2024-01-09 09:59] LABS: ANION GAP 13.2 (8-16); CARBON DIOXIDE 23.6 mmol/L (21-32); CREATININE 1.7 mg/dL (0.6-1.3); POTASSIUM 4.8 mmol/L (3.5-5.1)
[2024-01-09 10:03] LABS: ALBUMIN 2.8 g/dL (3.4-5.0); BILIRUBIN,DIRECT 0.1 mg/dL (0.0-0.3); TOTAL BILIRUBIN 0.4 mg/dL (0.0-1.0); TOTAL PROTEIN, SERUM 8.4 g/dL (6.4-8.2)
[2024-01-09 10:50] LABS: BASOPHILS % (MANUAL) 0 % (0-2); BLASTS, MANUAL % 0 % (0-0); EOSINOPHILS % (MANUAL) 0 % (0-4); LYMPHOCYTES % (MANUAL) 10 % (20-46); METAMYELOCYTES % 0 % (0-0); MONOCYTES % (MANUAL) 9 % (5-12); MYELOCYTES % 0 % (0-0); OTHER CELLS,MANUAL % 0 (0-0); PLATELET ESTIMATE SLIGHTLY INCREASED; PROMYELOCYTES % 0 % (0-0)
[2024-01-09] MEDS ORDERED: ONDA8TAB87 PO (11:27)
[2024-01-09 12:05] VITALS: BP 132/91; PULSE 91; RESP 16; TEMP 97.4; O2SAT 100
== END 2024-01-09 12:05 | disposition home or self-care (01) ==
LOC: MED 09:07
DX: R11.0 Nausea (principal); R19.7 Diarrhea, unspecified; I12.9 Hypertensive chronic kidney disease with stage 1 through stage 4 chronic kidney disease, or unspecified chronic kidney disease; E11.22 Type 2 diabetes mellitus with diabetic chronic kidney disease; N28.9 Disorder of kidney and ureter, unspecified; Z79.4 Long term (current) use of insulin; Z79.899 Other long term (current) drug therapy
CPT/HCPCS: 80048; 80076; 81002; 83690; 85025; 99283

== ENCOUNTER 2024-01-27 00:38 | Emergency (ER) | payer OTHER ==
[~2024-01-27] VITALS: Ht 172.7 cm; Wt 82.6 kg
[2024-01-27 00:38] VITALS: BP 170/110; PULSE 88; RESP 18; TEMP 98.3; O2SAT 98
[~2024-01-27 00:38] MED LIST changes: +ONDA8TAB87 PO
[2024-01-27 06:02] VITALS: BP 168/77; PULSE 88; RESP 18; TEMP 98.3; O2SAT 98
== END 2024-01-27 06:02 | disposition home or self-care (01) ==
LOC: MED 00:38
DX: R19.7 Diarrhea, unspecified (principal); R10.9 Unspecified abdominal pain; I13.10 Hypertensive heart and chronic kidney disease without heart failure, with stage 1 through stage 4 chronic kidney disease, or unspecified chronic kidney disease; E11.22 Type 2 diabetes mellitus with diabetic chronic kidney disease; N28.9 Disorder of kidney and ureter, unspecified; Z79.4 Long term (current) use of insulin; Z79.899 Other long term (current) drug therapy
CPT/HCPCS: 99283